=== PATIENT | male | born 1980 | race Caucasian/White ===

== ENCOUNTER 2016-08-31 17:44 | Emergency (ER) | payer BC ==
[2016-08-31] MEDS ORDERED: Acetaminophen/HYDROcodone 325-10 MG Tab PO ONE ×2 (18:00→19:20)
--- NOTE | 2016-08-31 18:00 | EDM.PDOC ---
ED HPI GENERAL MEDICAL PROBLEM - General Source of Information: Reports: Patient, RN, RN Notes Reviewed History Limitations: Reports: No Limitations Left Chest Pain Score (Numeric/FACES): 7 <Shad Underwood - Last Filed: 08/31/16 18:53> - History of Present Illness Onset: Today Duration: Hour(s):, Constant Location: Reports: Chest (left posterior ribs) Quality: Reports: Ache, Dull Severity: Moderate Improves with: Reports: None Worsens with: Reports: Breathing, Movement Context: Reports: Trauma Associated Symptoms: Reports: Chest Pain (left posterior chest wall) <Tae Hguhes - Last Filed: 08/31/16 19:15> - General Chief Complaint: Trauma Stated Complaint: SOB, RIBS [id number] Time Seen by Provider: 08/31/16 17:55 - History of Present Illness INITIAL COMMENTS - FREE TEXT/NARRATIVE: This 35 yo male patient reports to the ED with left sided rib pain due to a fall. The patient reports he was building a deck and fell hitting his left ribs on a chiara. (Tae Hughes) - Related Data Allergies Allergy/AdvReac Type Severity Reaction Status Date / Time cefaclor [From Ceclor] Allergy Cannot Verified 08/31/16 18:00 Remember Penicillins Allergy Cannot Verified 08/31/16 18:00 Remember Home Meds: Home Meds . [No Known Home Meds] 05/13/15 [History] Past Medical History - Past Health History Medical/Surgical History: Denies Medical/Surgical History HEENT History: Reports: None, Sinusitis Respiratory History: Reports: Bronchitis, Recurrent Gastrointestinal History: Reports: None Genitourinary History: Reports: None Musculoskeletal History: Reports: None Psychiatric History: Reports: None Endocrine/Metabolic History: Reports: None Hematologic History: Reports: None Immunologic History: Reports: None Oncologic (Cancer) History: Reports: None Dermatologic History: Reports: None - Infectious Disease History Infectious Disease History: Reports: None <Shad Underwood - Last Filed: 08/31/16 18:53> Social & Family History - Family History HEENT: Reports: None Cardiac: Reports: None Respiratory: Reports: None GI: Reports: None : Reports: None OBGYN: Reports: None Musculoskeletal: Reports: None Neurological: Reports: None Psychiatric: Reports: None Endocrine/Metabolic: Reports: None Hematologic: Reports: None Immunologic: Reports: None Dermatologic: Reports: None Oncologic: Reports: None - Tobacco Use Smoking Status *Q: Never Smoker Second Hand Smoke Exposure: No - Alcohol Use Days Per Week of Alcohol Use: 7 Number of Drinks Per Day: 2 Total Drinks Per Week: 14 - Recreational Drug Use Recreational Drug Use: No <Shad Underwood - Last Filed: 08/31/16 18:53> Review of Systems - Review of Systems Review Of Systems: ROS reveals no pertinent complaints other than HPI. <Tae Hughes - Last Filed: 08/31/16 19:15> ED EXAM, GENERAL - Physical Exam Exam: See Below Exam Limited By: No Limitations General Appearance: Alert, WD/WN, Moderate Distress Eye Exam: Bilateral Eye: EOMI, Normal Inspection, PERRL Ears: Normal External Exam, Normal Canal, Hearing Grossly Normal, Normal TMs Nose: Normal Inspection, Normal Mucosa, No Blood Throat/Mouth: Normal Inspection, Normal Lips, Normal Teeth, Normal Gums, Normal Oropharynx, Normal Voice, No Airway Compromise Head: Atraumatic, Normocephalic Neck: Normal Inspection, Supple, Non-Tender, Full Range of Motion Respiratory/Chest: No Respiratory Distress, Lungs Clear, Normal Breath Sounds, No Accessory Muscle Use, Other (left posterior wall chest pain (3 fractured ribs found on x-ray)) Cardiovascular: Normal Peripheral Pulses, Regular Rate, Rhythm, No Edema, No Gallop, No JVD, No Murmur, No Rub GI/Abdominal: Normal Bowel Sounds, Soft, Non-Tender, No Organomegaly, No Distention, No Abnormal Bruit, No Mass (Male) Exam: Deferred Rectal (Males) Exam: Deferred Back Exam: Normal Inspection, Full Range of Motion, NT Extremities: Normal Range of Motion, Non-Tender, No Pedal Edema, Normal Capillary Refill, Other (abrasion left forearm) Neurological: Alert, Oriented, CN II-XII Intact, Normal Cognition, Normal Gait, Normal Reflexes, No Motor/Sensory Deficits Psychiatric: Normal Affect, Normal Mood Skin Exam: Warm, Dry, Normal Color, No Rash, Other (abrasion to left posterior ribs) Lymphatic: No Adenopathy <Tae Hughes - Last Filed: 08/31/16 19:15> Departure <Shad Underwood - Last Filed: 08/31/16 18:53> - Departure Time of Disposition: 19:13 Condition: fair <HughesTae - Last Filed: 08/31/16 19:15> - Departure Disposition: Home, Self-Care 01 Clinical Impression: Rib fractures Qualifiers: Encounter type: initial encounter Rib fracture type: multiple ribs Fracture type: closed Laterality: left Qualified Code(s): S22.42XA - Multiple fractures of ribs, left side, initial encounter for closed fracture - Discharge Information Instructions: Rib Fracture Care Plan Goals: The patient was advised of the examination and x-ray result during the visit. The patient was given a dose of Anabel while in the ED. The patient was discharged with Anabel (10/325) #4 to take 1 by mouth every 6 hours as needed for pain and a script for Anabel (10/325) #30 to take 1 by mouth 4 times per day as needed. The patient was given a work note to return to work on 09/07/16. If the patient has any additional symptoms or concerns, the patient should follow- up with his primary care facility or return to the emergency department.
[2016-08-31 18:02] VITALS: BP 115/67
[2016-08-31] MEDS ORDERED: Acetaminophen/HYDROcodone 325-10 MG Tab ONE (19:20)
== END 2016-08-31 19:23 | disposition home or self-care (01) ==
LOC: DL.ED 17:44
DX: S22.42XA Multiple fractures of ribs, left side, initial encounter for closed fracture (principal); W22.8XXA Striking against or struck by other objects, initial encounter; Z88.0 Allergy status to penicillin; Z88.8 Allergy status to other drugs, medicaments and biological substances
CPT/HCPCS: 71101; 99283; A9270